=== PATIENT | female | born 1965 | race Caucasian/White ===

== ENCOUNTER → 2019-12-02 16:14 | Outpatient (CLI) | payer BC, SELFPAY ==
--- NOTE | ~2019-12-02 | XR_ITS ---
XR chest 2V 12/02/2019 16:38 Indication: Wheezing and dyspnea Procedure: 2 view chest Comparison: 02/17/2017 Findings: Heart size is normal. No focal air space disease, pulmonary edema, pleural effusion or susp ected pneumothorax. No acute osseous abnormality. Impression: 1: No acute cardiopulmonary disease. Reviewed, dictated and finalized at location [facility] Impression: 1: No acute cardiopulmonary disease.
== END ==
PROVIDERS: PCP Family Medicine; Visit Provider Family Medicine
DX: R06.2 Wheezing (principal)
CPT/HCPCS: 71046

== ENCOUNTER → 2021-09-18 00:23 | Outpatient (CLI) | payer BC, SELFPAY ==
[2021-09-18 18:55] LABS: SARS-CoV-2 RNA PCR Negative
== END ==
PROVIDERS: PCP Internal Medicine Infectious Disease; Visit Provider Internal Medicine Gastroenterology
DX: Z01.812 Encounter for preprocedural laboratory examination (principal); Z20.822 Contact with and (suspected) exposure to COVID-19
CPT/HCPCS: C9803; U0003; U0005

== ENCOUNTER 2021-09-21 00:44 | Day surgery (SDC) | payer BC, SELFPAY ==
[2021-09-07 11:43] VITALS: BMI 24.8
--- NOTE | 2021-09-21 08:22 | P.PNAN_ITS ---
Anes - Initial Pre Proc Eval Procedure: Operation Date: 09/21/21 13:30 Proposed Procedures p Screening Colonoscopy - Ezio Davidson MD Date/Time: 09/21/21 08:22 Surgeon: Ezio Davidson MD Pre Op Diagnosis: hx of rectal polyp, neoplasm screening Patient Data Age: 56 Gender: F Height: 1.6 m Weight: 63.6 kg Allergies Allergy/AdvReac Type Severity Reaction Status Date / Time No Known Allergies Allergy Verified 09/21/21 12:14 Home Medications Medication Instructions Recorded Confirmed Type No Home Medications 09/07/21 09/21/21 History Patient hx anesthesia problems: none Family hx anesthesia problems: none Results Review: All pre-operative results and documents have been reviewed as part of the pre-operative evaluation. [facility] Surgical History Surgical History (Updated 09/21/21 @ 08:23 by Vasiliy Wie DO) History of tubal ligation Hx of melanoma excision Family History Family History (Updated 02/27/17 @ 09:30 by DOCTOR UNKNOWN) Father Diabetes mellitus Cerebrovascular accident Social History Social History Smoking packs per day: 0.5 Smoking cigarettes per day: 10.0 Years smoked: 20 Smoking pack-years: 10.00 Smoking status: Former smoker Tobacco type: cigarettes Smoking end date: 10/16/08 Alcohol intake: current Drinks per week: 1 Alcohol use details: occasional use Substance use: never Substance use type: does not use Living arrangements: with family Spiritual care concerns: No Anes - Eval Final PreProcedure Day of Procedure 09/21/21 08:22 Patient weight: normal Heart: regular rate and rhythm Lungs: clear to auscultation and normal air movement Airway: Mallampati scale class II Neurological: alert and oriented Last oral intake: >/= 8 hours ASA classification: II Emergent: no Anesthetic plan: proceed Anesthesia type and monitoring: general GIVS and standard monitoring Results Review: All pre-operative results and documents have been reviewed as part of the pre-operative evaluation. Informed Consent: The patient's anesthetic plan and its attendant risks and benefits were discussed with the patient/family/POA. Questions were solicited and answers provided to the satisfaction of the patient/family/POA.
[2021-09-21 12:15] VITALS: BP 125/83; PULSE 59; RESP 16; TEMP 37.3; O2SAT 99; BMI 24.7
[2021-09-21] MEDS: LACTATED RINGERS 1,000 ML 150 ML IV CONT (12:35)
--- NOTE | 2021-09-21 13:27 | WPDGICN ---
Assessment and Plan Assessment and plan (1) History of colon polyps: Code(s): Z86.010 - Personal history of colonic polyps Status: Acute Assessment and Plan: Patient has a history of an adenomatous colon polyp removed from the colon 2015. Plan is for surveillance colonoscopy at present. Further recommendations Will be given after endoscopy. (2) Family history of colonic polyps: Code(s): Z83.71 - Family history of colonic polyps Status: Acute Assessment and Plan: Patient's mother had colon polyps requiring surgery. Plan for patient to have screening exam about every 5 years. GI Consult Note Consult date/time: 09/21/21 13:27 HPI: Chelly West is a 56 year old female presents for screening colonoscopy. Patient's current weight appetite and bowel movements are normal. She denies abdominal pain. She has had no bleeding. Past medical history is significant for an adenoma removed from the colon in 2015. Family history is significant that her mother has had colon polyps. Patient presents today for surveillance colonoscopy. Review of Systems Review of Systems: All systems reviewed & are unremarkable except as noted in HPI and below [facility] Surgical History Surgical History (Updated 09/21/21 @ 08:23 by Vasiliy Wei, ) History of tubal ligation Hx of melanoma excision Family History Family History (Updated 02/27/17 @ 09:30 by DOCTOR UNKNOWN) Father Diabetes mellitus Cerebrovascular accident Social History Social History Smoking packs per day: 0.5 Smoking cigarettes per day: 10.0 Years smoked: 20 Smoking pack-years: 10.00 Smoking status: Former smoker Tobacco type: cigarettes Smoking end date: 10/16/08 Alcohol intake: current Drinks per week: 1 Alcohol use details: occasional use Substance use: never Substance use type: does not use Living arrangements: with family Spiritual care concerns: No Meds Home Medications and Allergies Home Medications Medication Instructions Recorded Confirmed Type No Home Medications 09/07/21 09/21/21 History Allergies Allergy/AdvReac Type Severity Reaction Status Date / Time No Known Allergies Allergy Verified 09/21/21 12:14 Vital Signs Vital Signs - 24 hr 09/21/21 12:15 Temperature 99.1 F Pulse Rate 59 L Respiratory Rate 16 Blood Pressure 125/83 Pulse Oximetry 99 Exam Narrative: Physical exam reveals patient to be alert. Vital signs stable. HEENT exam is unremarkable. Patient is anicteric. Lungs are clear to auscultation and percussion. Heart is without murmur or extra sounds. Abdominal exam bowel sounds are present soft nontender with no organomegaly. Digital external rectal exam is normal.
[2021-09-21 13:28] VITALS: BP 112/69; PULSE 55; RESP 16; O2SAT 97
[2021-09-21 13:38] VITALS: BP 106/72; PULSE 53; RESP 17; O2SAT 100
[2021-09-21 13:48] VITALS: BP 124/80; PULSE 54; RESP 14; O2SAT 100
== END 2021-09-21 14:00 | disposition home or self-care (01) ==
PROVIDERS: PCP Internal Medicine Infectious Disease; Visit Provider Internal Medicine Gastroenterology
PROC: 0DJD8ZZ Inspection of Lower Intestinal Tract, Via Natural or Artificial Opening Endoscopic (ICD-10-PCS; CPT 45378; principal; 2021-09-21 13:30)
DX: Z12.11 Encounter for screening for malignant neoplasm of colon (principal); Z86.010 Personal history of colon polyps; Z83.71 Family history of colonic polyps; Z87.891 Personal history of nicotine dependence
CPT/HCPCS: 45378; J2704; J7120